=== PATIENT | male | born 1950 | race Caucasian/White ===

== ENCOUNTER 2025-03-28 08:38 | Oncology outpatient (recurring) (ONCR) | payer MEDICARE, SELFPAY ==
--- NOTE | 2025-03-28 11:55 | N.ONRAD NP_ITS ---
Radiation Oncology New Patient Visit Patient: Ajay Garcia MR#: [id number] : 1950> Age: 74> Sex: Male> Dictated by: Shree Matthew DO/HERMES/SUSAN Date of Service: 03/28/2025 Referring Physician(s) : VIK Diagnosis: METASTATIC PROSTATE, OLIGOMETS TO T7 TRANSVERSE PROCESS, BL PROSTATE GS 4+3, 11/12 CORES, 16-97% CORE VOLUME, 55CC, WEAKNESS LE L>R X 2 YRS WORSE OVER LAST 6 MO, OCC FECAL/URINARY URGENCY/INCONTINENCES X 2 YRS, PSA 12.54, AUA- , PRIOR MELANOMA- BACK 2011/HEAD 2012 STAGE: [id number] ICD-10: C79.51, C61 Radiotherapy to date: Summary > No prior radiation therapy. Chief Complaint / History of Present Illness: Patient seen today at the request of Dr. Jones for treatment of oligo mets T7 and Prostate/SV/LN. This is a patient who has had progressive pain in the mid back treated with narcotics. He has also had progressive increase in PSA since 2019. Please see PSA table below. His present PSA is 12.54 on 12/30/2024. Patient underwent 12 core biopsies on 01/27/2025. At the time the gland was approximately 55 cc and 11 out of 12 cores were positive. Right [place] GS 3+4 GS 430% 2 out of 3 cores 60% Right Mid GS 3+4 GS 445% 3 out of 3 cores 97% Right Base GS 4+3 GS 480% 2 out of 2 cores 81% Left Mid 3+4 GS 410% 2 out of 2 cores 16% Left Base GS 4+3 GS 490% 2 out of 2 cores 77%. PSA TABLE: 12/24/2019 4.7 06/30/2020 5.5 07/05/2024 8.35 11/03/2024 9.89 12/30/2024 12.54 PSMA PET/CT 02/22/2025-uptake T7 transverse process 1 x 2.4 cm (2.6). Prostate lesion (right 2.2 x 2.7 cm) (6.3) with no involvement of the SV/LN. JOSIE nodule 1.6 x 1.9 cm (1.2) AUA- . Significant obstructive symptoms. Current Medications: - Last Reconciled 03/28/25 by Alex Galeas amlodipine 5 mg PO DAILY apixaban 5 mg PO BID atorvastatin (Lipitor) 80 mg PO DAILY azelastine 1 spray intranasal BID clopidogrel 75 mg PO DAILY hydrocodone-acetaminophen 5-325 mg 1 tab PO Q4H PRN losartan 50 mg PO DAILY omeprazole-sodium bicarbonate 20-1.1 mg-gram (Zegerid OTC) 1 cap PO DAILY paroxetine HCl 20 mg PO DAILY trazodone 100 mg PO DAILY Allergies: atropine Allergy (Severe) Medical History: Asthma, cancer, hypertension. 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 Mother has experienced Cancer. Maternal Grandmother has experienced cardiovascular disease. Maternal Grandfather has experienced cardiovascular disease. Paternal Grandfather has experienced cardiovascular disease. Social History: Smoking and tobacco/nicotine status: never used tobacco/nicotine Current Complaints / Review of Systems: .12 point ROS otherwise negative Vital Signs: Performed on 03/28/2025 9:44 AM BMI - 45.543 kg/m2 (high), Height - 62 in, Weight - 249 lbs, Temperature - 97.6 f, Pulse - 70 /min, Respiration - 16 /min, O2 Sat - 96 %, Pain - 7, Fatigue - 0 and BP - 135/ 80 mm(hg). Physical Exam: Alert and oriented and answers questions appropriately. Chest lungs are clear to auscultation heart is regular rate and rhythm. Abdomen is soft nontender with no hepatosplenomegaly. Extremities intact x 4. Patient uses lyses a single post cane but may wish to proceed to walker or a stand-up walker. Vertebral exam shows point tenderness mid thoracic area. This causes no radiation and pain. GI: Normal male external genitalia for age. Sphincter tone adequate. Prostate- No blood per exam glove. Performance Status: KPS 80 Pathology: As above Lab: As above Imaging: See HPI Impression: METASTATIC PROSTATE, OLIGOMETS TO T7 TRANSVERSE PROCESS, BL PROSTATE GS 4+3, 11/12 CORES, 16-97% CORE VOLUME, 55CC, WEAKNESS LE L>R X 2 YRS WORSE OVER LAST 6 MO, OCC FECAL/URINARY URGENCY/INCONTINENCES X 2 YRS, PSA 12.54, AUA- 31/35, PRIOR MELANOMA- BACK 2011/HEAD 2013 STAGE: [id number] ICD-10: C79.51, C61 Plan: Options were discussed with the patient and daughter. Patient wishes to proceed with oligo mets treatment to T7 as well as and prostate and lymph nodes. Patient's questions were answered to his satisfaction. Patient's consent was signed today after all questions answered. We will CT the patient for his T-spine treatment today. Signed by: 03/29/2025 3:09:06 PM Thoracic spine will be treated to 2000 cGy in [address] the prostate and lymph nodes on the first day of his T-spine treatment. Prostate seminal vesicle and lymph nodes will be treated to 7000 cGy in 28 fractions. <<Signature on File>> Time spent with patient/daughter/review of records/preparation of document: 70 MINUTES CPT Code: CPT Code:
== END 2025-04-15 23:59 | disposition home or self-care (01) ==
PROVIDERS: Family Provider Family Medicine; PCP Nurse Practitioner Family; Visit Provider Internal Medicine Medical Oncology
DX: C61 Malignant neoplasm of prostate (principal); C79.51 Secondary malignant neoplasm of bone; M89.8X8 Other specified disorders of bone, other site; Z79.899 Other long term (current) drug therapy
CPT/HCPCS: 99205